=== PATIENT | female | born 1990 | race Caucasian/White ===

== ENCOUNTER 2017-03-10 21:45 | Emergency (ER) | payer OTHER ==
[~2017-03-10 21:45] MED LIST: IBUPROFEN600 MG PO
[2017-03-10 21:58] VITALS: BP 126/82
== END 2017-03-10 23:01 | disposition home or self-care (01) ==
LOC: ED 21:45
DX: G56.02 Carpal tunnel syndrome, left upper limb (principal)

== ENCOUNTER 2017-06-30 21:58 | Emergency (ER) | payer OTHER ==
[~2017-06-30] VITALS: Ht 160 cm; Wt 108.0 kg
[2017-07-01 00:53] VITALS: BP 101/56
== END 2017-07-01 00:53 | disposition home or self-care (01) ==
LOC: ED 21:58
DX: R42 Dizziness and giddiness (principal); M54.40 Lumbago with sciatica, unspecified side; J40 Bronchitis, not specified as acute or chronic; E66.9 Obesity, unspecified
CPT/HCPCS: 82962; J1885

== ENCOUNTER 2017-08-22 15:28 | Emergency (ER) | payer OTHER ==
[2017-08-22 18:05] VITALS: BP 117/74
== END 2017-08-22 18:05 | disposition home or self-care (01) ==
LOC: ED 15:28
DX: N39.0 Urinary tract infection, site not specified (principal); M54.9 Dorsalgia, unspecified
CPT/HCPCS: J1885

== ENCOUNTER 2018-10-12 18:22 | Emergency (ER) | payer OTHER ==
[~2018-10-12] VITALS: Ht 157.5 cm; Wt 115.2 kg
[2018-10-12 19:35] VITALS: BP 162/107; Ht 157.5 cm; Wt 115.2 kg
== END 2018-10-12 21:39 | disposition left against medical advice (07) ==
LOC: ED 18:22
DX: Z53.21 Procedure and treatment not carried out due to patient leaving prior to being seen by health care provider (principal)

== ENCOUNTER 2019-11-30 02:32 | Emergency (ER) | payer OTHER ==
[~2019-11-30] VITALS: Ht 157.5 cm; Wt 117.5 kg
[2019-11-30 02:41] VITALS: Ht 157.5 cm; Wt 117.5 kg
[2019-11-30 03:29] LABS: BASOPHIL % 0.3 % (0-2); PLATELET COUNT 271 x10^3mcL (130-400); RED CELL DISTRIBUTION WIDTH 13.7 % (11.5-14.5)
[2019-11-30 04:10] LABS: CALCIUM 8.7 mg/dL (8.5-10.1); CARBON DIOXIDE 27.4 mmol/L (21-32); CHLORIDE SERUM 106 mmol/L (98-107); CREATININE SERUM 0.5 mg/dL (0.6-1.0); GFR1 > 60 mL/min; GLUCOSE SERUM 107 mg/dL (74-106); POTASSIUM SERUM 3.6 mmol/L (3.5-5.1); SODIUM SERUM 142 mmol/L (136-145)
[2019-11-30 04:14] LABS: ALBUMIN 3.6 g/dL (3.4-5.0); ALKALINE PHOSPHATASE 55 U/L (46-116); ALT/SGPT 23 U/L (14-59); AST/SGOT 14 U/L (15-37); BILIRUBIN TOTAL 0.21 mg/dL (0.20-1.00); LIPASE 110 IU/L (73-393); TOTAL PROTEIN, SERUM 6.8 g/dL (6.4-8.2)
[2019-11-30 04:48] VITALS: BP 123/66
== END 2019-11-30 04:47 | disposition home or self-care (01) ==
LOC: ED 02:32
PROVIDERS: Emergency Medicine
DX: K21.9 Gastro-esophageal reflux disease without esophagitis (principal)
CPT/HCPCS: 36415; Q0092